=== PATIENT | female | born 1990 | race American Indian/Alaskan Native ===

== ENCOUNTER 2017-02-06 21:40 | Emergency (ER) | payer SELFPAY ==
[2017-02-06 22:24] VITALS: BP 128/80; PULSE 86
--- NOTE | 2017-02-06 22:56 | ED PDOC ---
Arrival/HPI - General Chief Complaint: Eye Problem Time Seen by Provider: 02/06/17 22:50 Historian: Patient - History of Present Illness Narrative History of Present Illness (Text): 02/06/17 22:51 Bailey Sepulveda is a 26 year old female who presents to the emergency department complaining of swelling to left eye since today morning. Reports she was unable to open her eyelids due to the swelling. States she applied Vaseline to the area, which reduced the swelling. Also reports of white discharge from the eye today evening. Currently states that discomfort is spreading to the other eye. Denies any vision changes. Patient is also complaining of swelling to lip for past 2 days. Denies any fever, chills, headache, dizziness, chest pain, difficulty breathing, nausea, vomiting, urinary symptoms, or any other complaints at this time. Time/Duration: Other (today morning ) Symptom Onset: Gradual Symptom Course: Worsening Severity Level: Mild Activities at Onset: Light Past Medical History - Provider Review Nursing Documentation Reviewed: Yes - Pulmonary Hx Asthma: Yes - Psychiatric Hx Substance Use: (MJ) Family/Social History - Physician Review Nursing Documentation Reviewed: Yes Family/Social History: No Known Family HX Smoking Status: no Hx Alcohol Use: No Hx Substance Use: (MJ) Allergies/Home Meds Allergies/Adverse Reactions: Allergies ibuprofen [From Motrin] Adverse Reaction (Verified 02/06/17 22:44) SWELLING iodine Adverse Reaction (Verified 02/06/17 22:44) ANGIOEDEMA shellfish derived Adverse Reaction (Verified 02/06/17 22:44) ANGIOEDEMA Review of Systems - Physician Review All systems were reviewed & negative as marked: Yes - Review of Systems Constitutional: Normal Eyes: Other (swelling to left eye ). absent: Vision Changes, Photophobia ENT: Other (swelling to lip ) Respiratory: Normal. absent: SOB, Cough, Sputum Cardiovascular: Normal. absent: Chest Pain, Palpitations Gastrointestinal: Normal Skin: Normal, Ulcer Neurological: absent: Headache, Dizziness Psychiatric: Normal Physical Exam Vital Signs Reviewed: Yes Vital Signs Temp Pulse Resp BP Pulse Ox 02/06/17 23:44 86 16 98 02/06/17 23:42 98.5 F 86 16 98 02/06/17 22:18 99.3 F 86 18 128/80 97 Temperature: Afebrile Blood Pressure: Normal Pulse: Regular Respiratory Rate: Normal Appearance: Positive for: Well-Appearing, Non-Toxic, Comfortable Pain Distress: None Mental Status: Positive for: Alert and Oriented X 3 - Systems Exam Head: Present: Atraumatic, Normocephalic Pupils: Present: PERRL Conjunctiva: Present: Injected Mouth: Present: Other (blister on bottom lip ) Respiratory/Chest: Present: Clear to Auscultation, Good Air Exchange. No: Respiratory Distress, Accessory Muscle Use Cardiovascular: Present: Regular Rate and Rhythm, Normal S1, S2. No: Murmurs Upper Extremity: Present: Normal Inspection. No: Cyanosis, Edema Lower Extremity: Present: Normal Inspection. No: Edema Neurological: Present: GCS=15, CN II-XII Intact, Speech Normal, Motor Func Grossly Intact, Normal Sensory Function Skin: Present: Warm, Dry, Normal Color. No: Rashes Psychiatric: Present: Alert, Oriented x 3, Normal Insight, Normal Concentration Medical Decision Making ED Course and Treatment: 02/06/17 22:57 Impression: A 26 year old female who presents to the emergency department complaining of swelling to left eye since today morning. Also reports of blister to bottom lip for past 2 days. Plan: -- Tobrex Ophth soln -- Reassess and disposition Progress Notes: 02/06/17 23:12 Patient is stable for discharge. Will discharge patient home on Xerese cream and Polytrim ophth solution. Advised to present to emergency department for worsening symptoms and follow up with PMD within few days. 02/06/17 23:18 - Medication Orders Current Medication Orders: Discontinued Medications Tobramycin Sulfate (Tobrex 0.3% Ophth Soln) 2 drop OU STAT STA Stop: 02/06/17 23:17 Last Admin: 02/06/17 23:41 Dose: 2 drop - Scribe Statement The provider has reviewed the documentation as recorded by the Radha Healy Provider Attestation: All medical record entries made by the Radha were at my direction and personally dictated by me. I have reviewed the chart and agree that the record accurately reflects my personal performance of the history, physical exam, medical decision making, and the department course for this patient. I have also personally directed, reviewed, and agree with the discharge instructions and disposition. Disposition/Present on Arrival - Present on Arrival Any Indicators Present on Arrival: No History of DVT/PE: No History of Uncontrolled Diabetes: No Urinary Catheter: No History of Decub. Ulcer: No History Surgical Site Infection Following: None - Disposition Have Diagnosis and Disposition been Completed?: Yes Diagnosis: Acute conjunctivitis of both eyes Disposition: HOME/ ROUTINE Disposition Time: 22:45 Patient Plan: Discharge Condition: GOOD Discharge Instructions (ExitCare): Conjunctivitis (ED) Additional Instructions: Thank you for letting us take care of you today. Your provider was Dr. Hernandez. You were treated for conjunctivitis. The emergency medical care you received today was directed at your acute symptoms. If you were prescribed any medication, please fill it and take as directed. It may take several days for your symptoms to resolve. Return to the Emergency Department if your symptoms worsen, do not improve, or if you have any other problems. Please contact your doctor or call one of the physicians/clinics you have been referred to that are listed on the Patient Visit Information form that is included in your discharge packet. Bring any paperwork you were given at discharge with you along with any medications you are taking to your follow up visit. Our treatment cannot replace ongoing medical care by a primary care provider (PCP) outside of the emergency department. Thank you for allowing the [facility] [employer] [facility] team to be part of your care today. Follow up with your doctor in 2-3 days for re-evaluation. Prescriptions: Acyclovir/Hydrocortisone [Xerese 5%-1% Cream] 1 cre TP QID #1 cre Polymyxin/Trimethoprim Sulfate [Polytrim Ophth Soln] 1 drop OU Q6 #1 bottle [facility] - Follow up with primary Forms: WORK NOTE
[2017-02-06] MEDS ORDERED: Tobramycin 0.3% OPHT SOLN OU STA (23:16)
[2017-02-06 23:42] VITALS: RESP 16; TEMP 98.5; O2SAT 98
== END 2017-02-06 23:45 | disposition home or self-care (01) ==
LOC: ED 21:40
DX: H10.9 Unspecified conjunctivitis (principal)

== ENCOUNTER 2017-06-06 19:34 | Emergency (ER) | payer SELFPAY ==
[2017-06-06 19:39] VITALS: BMI 42.0
[2017-06-06 19:45] VITALS: BP 116/76; PULSE 97; RESP 16; TEMP 98.6; O2SAT 98
[2017-06-06] MEDS ORDERED: Atrop/Hyosc/Scopal/PB Elixir (120 ml) PO STA (20:13)
[2017-06-06] MEDS ORDERED: Sodium Chloride 0.9% 1,000 ML IV STA (20:13)
[2017-06-06] MEDS ORDERED: Alum-Mag Hydrox-Simethicone Susp (30 mL) PO STA (20:13)
[2017-06-06 21:12] LABS: URINE BILIRUBIN NEGATIVE (NEGATIVE); URINE BLOOD NEGATIVE (NEGATIVE); URINE GLUCOSE (UA) NEGATIVE (NEGATIVE); URINE KETONE NEGATIVE (NEGATIVE); URINE LEUKOCYTE ESTERASE NEGATIVE Leu/uL (NEGATIVE); URINE PROTEIN NEGATIVE mg/dL (<30 mg/dL); URINE UROBILINOGEN 0.2 E.U./dL (<1 E.U./dL)
[2017-06-06 21:15] LABS: URINE APPEARANCE CLEAR (CLEAR); URINE COLOR YELLOW (YELLOW)
[2017-06-06 21:39] LABS: BASO # 0.02 K/mm3 (0.0-2.0); BASO % 0.2 % (0.0-3.0); EOS # 0.2 (0.0-0.7); EOS % 1.5 % (1.5-5.0); GRAN # 7.21 (1.4-6.5); GRAN % 64.2 % (50.0-68.0); HEMATOCRIT 39.9 % (36.0-48.0); LYMPH # 3.1 (1.2-3.4); LYMPH % 27.6 % (22.0-35.0); MEAN CORPUSCULAR HEMOGLOBIN 26.1 pg (25.0-35.0); MEAN CORPUSCULAR HGB CONC 31.1 g/dl (31.0-37.0); MEAN PLATELET VOLUME 11.3 fl (7.0-11.0); MONO # 0.7 (0.1-0.6); MONO % 6.5 % (1.0-6.0); RED CELL DISTRIBUTION WIDTH 12.4 % (11.5-14.5); WHITE BLOOD COUNT 11.2 10^3/ul (4.5-11.0)
[2017-06-06 21:43] LABS: ALB/GLOB RATIO 1.2 (1.1-1.8); ALKALINE PHOSPHATASE 88 U/L (38-126); ALT/SGPT 35 U/L (7-56); AST/SGOT 26 U/L (14-36); BILIRUBIN,TOTAL 0.7 mg/dL (0.2-1.3); BLOOD UREA NITROGEN 9 mg/dL (7-21); CALCIUM 9.2 mg/dL (8.4-10.5); CARBON DIOXIDE 27 mmol/L (21-33); GFR AFRICAN-AMERICAN > 60; GLUCOSE,RANDOM 85 mg/dL (70-110); LIPASE 48 U/L (23-300); SODIUM 139 mmol/L (132-148); TOTAL PROTEIN 7.4 g/dL (5.8-8.3)
--- NOTE | 2017-06-06 21:47 | ED PDOC ---
Arrival/HPI - General Chief Complaint: Abdominal Pain Time Seen by Provider: 06/06/17 19:56 Historian: Patient - History of Present Illness Narrative History of Present Illness (Text): 06/06/17 20:08 A 26 year old female, whose past medical history includes asthma, presents to the emergency department complaining of epigastric pain for several months. Patient notes experiencing mild nausea when eating, but does not pertain to certain types of foods give her more pain. Patient denies of any fever, cough, or any other complaints. No PMD Past Medical History - Provider Review Nursing Documentation Reviewed: Yes - Travel History Have you recently traveled outside [place] w/in the past 3 mons?: No - Infectious Disease Hx of Infectious Diseases: None - Pulmonary Hx Asthma: Yes - Psychiatric Hx Substance Use: Yes (MJ) - Surgical History Other/Comment: L knee acl/ hamstring/knee cap. abd. surgery as a child - Anesthesia Hx Anesthesia Reactions: No Hx Malignant Hyperthermia: No Family/Social History - Physician Review Nursing Documentation Reviewed: Yes Family/Social History: No Known Family HX Smoking Status: Current Some Days Smoker Hx Alcohol Use: No Hx Substance Use: Yes (MJ) Substance used: weed Allergies/Home Meds Allergies/Adverse Reactions: Allergies ibuprofen [From Motrin] Adverse Reaction (Verified 02/06/17 22:44) SWELLING iodine Adverse Reaction (Verified 02/06/17 22:44) ANGIOEDEMA shellfish derived Adverse Reaction (Verified 02/06/17 22:44) ANGIOEDEMA Review of Systems - Physician Review All systems were reviewed & negative as marked: Yes - Review of Systems Constitutional: absent: Fevers Respiratory: absent: Cough Gastrointestinal: Abdominal Pain (epigastric pain), Nausea (mild nausea), Food Intolerance. absent: Vomiting Physical Exam Vital Signs Reviewed: Yes Vital Signs Temp Pulse Resp BP Pulse Ox 06/06/17 19:34 98.6 F 97 H 16 116/76 98 Temperature: Afebrile Blood Pressure: Normal Pulse: Regular Respiratory Rate: Normal Appearance: Positive for: Well-Appearing Pain Distress: None Mental Status: Positive for: Alert and Oriented X 3 - Systems Exam Head: Present: Atraumatic, Normocephalic Pupils: Present: PERRL Extroacular Muscles: Present: EOMI Conjunctiva: Present: Normal Mouth: Present: Moist Mucous Membranes Neck: Present: Normal Range of Motion Respiratory/Chest: Present: Clear to Auscultation, Good Air Exchange. No: Respiratory Distress, Accessory Muscle Use Cardiovascular: Present: Regular Rate and Rhythm, Normal S1, S2. No: Murmurs Abdomen: Present: Tenderness (minimal epigatric tenderness) Back: Present: Normal Inspection Upper Extremity: Present: Normal Inspection. No: Cyanosis, Edema Lower Extremity: Present: Normal Inspection. No: Edema Neurological: Present: GCS=15, CN II-XII Intact, Speech Normal Skin: Present: Warm, Dry, Normal Color. No: Rashes Psychiatric: Present: Alert, Oriented x 3, Normal Insight, Normal Concentration Medical Decision Making ED Course and Treatment: 06/06/17 20:13 Impression: 26 year old female experiencing epigastric pain. Physical exam shows minimal epigastric tenderness. Plan: -- Labs -- Urinalysis -- Maalox -- Elixir -- Pepcid -- Lidocaine -- IV Fluids -- Reassess and disposition Prior Visits: Notes and results from previous visits were reviewed. Patient was last seen in the emergency department on 02/06/2017 for swelling to left eye. Patient was discharged home. Progress Notes: - Lab Interpretations Lab Results: 06/06/17 20:30 06/06/17 20:30 Lab Results 06/06/17 20:30: Sodium 139, Potassium 3.8, Chloride 102, Carbon Dioxide 27, Anion Gap 14, BUN 9, Creatinine 0.6, Est GFR ( Amer) > 60, Est GFR (Non- Af Amer) > 60, Random Glucose 85, Calcium 9.2, Total Bilirubin 0.7, AST 26, ALT 35, Alkaline Phosphatase 88, Total Protein 7.4, Albumin 4.1, Globulin 3.3, Albumin/Globulin Ratio 1.2, Lipase 48 06/06/17 20:30: WBC 11.2 H, RBC 4.75, Hgb 12.4, Hct 39.9, MCV 84.0, MCH 26.1, MCHC 31.1, RDW 12.4, Plt Count 249, MPV 11.3 H, Gran % 64.2, Lymph % (Auto) 27.6 , [place] % (Auto) 6.5 H, Eos % (Auto) 1.5, Baso % (Auto) 0.2, Gran # 7.21 H, Lymph # 3.1, [place] # 0.7 H, Eos # 0.2, Baso # 0.02 06/06/17 18:55: Urine Color Yellow, Urine Appearance Clear, Urine pH 6.0, Ur Specific [place] >= 1.030, Urine Protein Negative, Urine Glucose (UA) Negative, Urine Ketones Negative, Urine Blood Negative, Urine Nitrate Negative, Urine Bilirubin Negative, Urine Urobilinogen 0.2, Ur Leukocyte Esterase Negative, Urine HCG, Qual Negative I have reviewed the lab results: Yes - Medication Orders Current Medication Orders: Discontinued Medications Al Hydrox/Mg Hydrox/Simethicone (Maalox Plus 30 Ml) 30 ml PO STAT STA Stop: 06/06/17 20:14 Last Admin: 06/06/17 20:55 Dose: 30 ml Belladonna/Phenobarbital ( Elixir) 10 ml PO STAT STA Stop: 06/06/17 20:14 Last Admin: 06/06/17 20:55 Dose: 10 ml Famotidine (Pepcid) 20 mg IVP STAT STA Stop: 06/06/17 20:14 Last Admin: 06/06/17 20:54 Dose: 20 mg Sodium Chloride (Sodium Chloride 0.9%) 1,000 mls @ 1,000 mls/hr IV .Q1H STA Stop: 06/06/17 21:12 Last Admin: 06/06/17 20:56 Dose: 1,000 mls/hr Lidocaine HCl (Lidocaine 2% Viscous) 10 ml PO STAT STA Stop: 06/06/17 20:14 Last Admin: 06/06/17 20:54 Dose: 10 ml - Scribe Statement The provider has reviewed the documentation as recorded by the Radha Douglas Provider Scribe Attestation: All medical record entries made by the Radha were at my direction and personally dictated by me. I have reviewed the chart and agree that the record accurately reflects my personal performance of the history, physical exam, medical decision making, and the department course for this patient. I have also personally directed, reviewed, and agree with the discharge instructions and disposition. Disposition/Present on Arrival - Present on Arrival Any Indicators Present on Arrival: No History of DVT/PE: No History of Uncontrolled Diabetes: No Urinary Catheter: No History of Decub. Ulcer: No History Surgical Site Infection Following: None - Disposition Have Diagnosis and Disposition been Completed?: Yes Diagnosis: Gastritis Disposition: HOME/ ROUTINE Disposition Time: 22:30 Patient Problems: Current Active Problems Problem Status Onset Gastritis Acute Condition: IMPROVED Discharge Instructions (ExitCare): Gastritis (ED) Additional Instructions: Thank you for letting us take care of you today. Your provider was Dr. Hernandez. You were treated for gastritis. The emergency medical care you received today was directed at your acute symptoms. If you were prescribed any medication, please fill it and take as directed. It may take several days for your symptoms to resolve. Return to the Emergency Department if your symptoms worsen, do not improve, or if you have any other problems. Please contact your doctor or call one of the physicians/clinics you have been referred to that are listed on the Patient Visit Information form that is included in your discharge packet. Bring any paperwork you were given at discharge with you along with any medications you are taking to your follow up visit. Our treatment cannot replace ongoing medical care by a primary care provider (PCP) outside of the emergency department. Thank you for allowing the [facility] team to be part of your care today. Follow up with your doctor in 2-3 days for re-evaluation and further management. Prescriptions: Ranitidine HCl [Zantac] 150 mg PO BID #20 tablet Forms: [facility] (Bolivian), WORK NOTE
[2017-06-06 22:01] LABS: CHLORIDE 102 mmol/L (95-110); POTASSIUM 3.8 mmol/L (3.6-5.0)
== END 2017-06-06 23:03 | disposition home or self-care (01) ==
LOC: ED 19:34
DX: K29.70 Gastritis, unspecified, without bleeding (principal)
CPT/HCPCS: 80053; 81003; 83690; 84703; 85025; 96374; 99284; J7040

== ENCOUNTER 2017-07-03 22:03 | Emergency (ER) | payer SELFPAY ==
[2017-07-03 22:04] VITALS: BMI 42.0
[2017-07-03] MEDS ORDERED: Alum-Mag Hydrox-Simethicone Susp (30 mL) PO STA (22:55)
--- NOTE | 2017-07-03 23:05 | ED PDOC ---
Arrival/HPI - General Chief Complaint: Dental Pain Time Seen by Provider: 07/03/17 22:36 Historian: Patient - History of Present Illness Narrative History of Present Illness (Text): 07/03/17 22:36 Bailey Palma is a 26 year old female who presents to the emergency department complaining of epigastric pain for about 1 month and sharp right- sided tooth pain for 2 days. Patient states that she has been to the emergency department recently for the same epigastric symptoms and was prescribed Zantac with some relief. Patient also complains of sharp right sided tooth pain which began two days and notes to have chipped about one month ago. She states that pain worsens with cold fluids and exposure to wind. Patient denies any fever, chills, chest pain, shortness of breath, nausea, vomiting, diarrhea, urinary symptoms, back pain, neck pain, headache, dizziness, trauma/injury, suicidal/ homicidal ideation or any other complaints. Time/Duration: < week (right-sided tooth pain), > month (epigastric pain) Symptom Onset: Gradual Symptom Course: Unchanged Severity Level: Moderate Activities at Onset: Light Context: Home Past Medical History - Infectious Disease Hx of Infectious Diseases: None - Pulmonary Hx Asthma: Yes - Psychiatric Hx Substance Use: Yes (MJ) - Surgical History Other/Comment: L knee acl/ hamstring/knee cap. abd. surgery as a child - Anesthesia Hx Anesthesia Reactions: No Hx Malignant Hyperthermia: No Family/Social History Family/Social History: No Known Family HX Smoking Status: Current Some Days Smoker Hx Alcohol Use: No Hx Substance Use: Yes (MJ) Substance used: weed Allergies/Home Meds Allergies/Adverse Reactions: Allergies ibuprofen [From Motrin] Adverse Reaction (Verified 02/06/17 22:44) SWELLING iodine Adverse Reaction (Verified 02/06/17 22:44) ANGIOEDEMA shellfish derived Adverse Reaction (Verified 02/06/17 22:44) ANGIOEDEMA Review of Systems - Physician Review All systems were reviewed & negative as marked: Yes - Review of Systems Constitutional: absent: Fevers, Night Sweats Eyes: absent: Vision Changes ENT: Other (Right-sided tooth pain). absent: Hearing Changes Cardiovascular: absent: Chest Pain Gastrointestinal: Abdominal Pain (epigastric pain) Genitourinary Female: absent: Dysuria, Frequency Musculoskeletal: absent: Arthralgias Skin: absent: Rash, Pruritis Neurological: absent: Headache, Dizziness Endocrine: absent: Diaphoresis Hemo/Lymphatic: absent: Adenopathy Psychiatric: absent: Anxiety Physical Exam Vital Signs Reviewed: Yes Vital Signs Temp Pulse Resp BP Pulse Ox 07/03/17 22:17 98.2 F 76 18 126/84 99 Appearance: Positive for: Well-Appearing, Non-Toxic, Comfortable Pain Distress: None Mental Status: Positive for: Alert and Oriented X 3 - Systems Exam Head: Present: Atraumatic, Normocephalic. No: Swelling Pupils: Present: PERRL Mouth: Present: Moist Mucous Membranes, Other (non gingival erythema, no abscess , no sublingual or submental induration). No: Trismus Pharnyx: No: Peritonsilar Swelling, Uvular Deviation, Muffled/Hoarse Voice, Strider, Soft Palate/Uvular Edema Neck: Present: Normal Range of Motion Respiratory/Chest: Present: Clear to Auscultation. No: Respiratory Distress, Accessory Muscle Use Cardiovascular: Present: Regular Rate and Rhythm Abdomen: Present: Tenderness (Epigastric tenderness; negative mack's sign ). No: Distention, Peritoneal Signs, Rebound, Guarding Neurological: Present: GCS=15, Motor Func Grossly Intact, Normal Sensory Function Skin: Present: Warm, Dry Psychiatric: Present: Alert, Oriented x 3 Medical Decision Making ED Course and Treatment: for dental pain rx abx and rec close dental f/u chronic epigastric pain- susp gastritis- disc w pt importance of diet. disc plan for f/u and rtr. - Lab Interpretations Lab Results: 07/03/17 23:30 07/04/17 00:00 Lab Results 07/04/17 00:00: Sodium 141, Potassium 4.0, Chloride 104, Carbon Dioxide 28, Anion Gap 13, BUN 10, Creatinine 0.6 L, Est GFR ( Amer) > 60, Est GFR ( Non-Af Amer) > 60, Random Glucose 95, Calcium 9.5, Total Bilirubin 0.6, AST 26, ALT 33, Alkaline Phosphatase 88, Total Protein 7.2, Albumin 4.2, Globulin 3.0, Albumin/Globulin Ratio 1.4, Lipase 50 07/03/17 23:30: Urine Color Yellow, Urine Appearance Clear, Urine pH 6.0, Ur Specific [place] 1.025, Urine Protein Negative, Urine Glucose (UA) Negative, Urine Ketones Trace H, Urine Blood Negative, Urine Nitrate Negative, Urine Bilirubin Negative, Urine Urobilinogen 0.2, Ur Leukocyte Esterase Negative, Urine HCG, Qual Negative 07/03/17 23:30: WBC 11.8 H, RBC 4.68, Hgb 12.3, Hct 39.3, MCV 84.0, MCH 26.3, MCHC 31.3, RDW 12.7, Plt Count 282, MPV 12.1 H, Gran % 60.3, Lymph % (Auto) 32.3 , [place] % (Auto) 5.8, Eos % (Auto) 1.4 L, Baso % (Auto) 0.2, Gran # 7.10 H, Lymph # 3.8 H, [place] # 0.7 H, Eos # 0.2, Baso # 0.02 - RAD Interpretation Radiology Orders: 07/03/17 22:55 GALLBLADDER & COMMON DUCT [US] Stat - Medication Orders Current Medication Orders: Discontinued Medications Al Hydrox/Mg Hydrox/Simethicone (Maalox Plus 30 Ml) 30 ml PO STAT STA Stop: 07/03/17 22:56 Last Admin: 07/03/17 23:31 Dose: 30 ml Lidocaine HCl (Lidocaine 2% Viscous) 15 ml PO STAT STA Stop: 07/03/17 22:56 Last Admin: 07/03/17 23:31 Dose: 15 ml - Scribe Statement The provider has reviewed the documentation as recorded by the Radha Vogel Provider Scribe Attestation: All medical record entries made by the Riazibwilber were at my direction and personally dictated by me. I have reviewed the chart and agree that the record accurately reflects my personal performance of the history, physical exam, medical decision making, and the department course for this patient. I have also personally directed, reviewed, and agree with the discharge instructions and disposition. Disposition/Present on Arrival - Present on Arrival Any Indicators Present on Arrival: No History of DVT/PE: No History of Uncontrolled Diabetes: No Urinary Catheter: No History of Decub. Ulcer: No History Surgical Site Infection Following: None - Disposition Have Diagnosis and Disposition been Completed?: Yes Diagnosis: Pain, dental, Epigastric pain Disposition: HOME/ ROUTINE Disposition Time: 01:30 Condition: GOOD Discharge Instructions (ExitCare): Diet for Ulcers and Gastritis (ED) Additional Instructions: Please follow up with your primary doctor and also with a dentist. Return to the ER for any worsening symptoms or for any other concerns. Prescriptions: Penicillin VK [Penicillin VK Tab] 500 mg PO Q6H #80 tab Referrals: [facility] [place] [Outside] - Follow up with primary Michele Reaves MD [Staff Provider] - Follow up with primary Forms: [facility] (Qatari), WORK NOTE
[2017-07-03 23:53] LABS: BASO # 0.02 K/mm3 (0.0-2.0); BASO % 0.2 % (0.0-3.0); EOS # 0.2 (0.0-0.7); EOS % 1.4 % (1.5-5.0); GRAN # 7.1 (1.4-6.5); GRAN % 60.3 % (50.0-68.0); HEMATOCRIT 39.3 % (36.0-48.0); LYMPH # 3.8 (1.2-3.4); LYMPH % 32.3 % (22.0-35.0); MEAN CORPUSCULAR HEMOGLOBIN 26.3 pg (25.0-35.0); MEAN CORPUSCULAR HGB CONC 31.3 g/dl (31.0-37.0); MEAN PLATELET VOLUME 12.1 fl (7.0-11.0); MONO # 0.7 (0.1-0.6); MONO % 5.8 % (1.0-6.0); RED CELL DISTRIBUTION WIDTH 12.7 % (11.5-14.5); WHITE BLOOD COUNT 11.8 10^3/ul (4.5-11.0)
[2017-07-03 23:55] LABS: URINE BILIRUBIN NEGATIVE (NEGATIVE); URINE BLOOD NEGATIVE (NEGATIVE); URINE GLUCOSE (UA) NEGATIVE (NEGATIVE); URINE KETONE TRACE mg/dL (NEGATIVE); URINE LEUKOCYTE ESTERASE NEGATIVE Leu/uL (NEGATIVE); URINE PROTEIN NEGATIVE mg/dL (<30 mg/dL); URINE UROBILINOGEN 0.2 E.U./dL (<1 E.U./dL)
[2017-07-04 00:11] LABS: URINE APPEARANCE CLEAR (CLEAR); URINE COLOR YELLOW (YELLOW)
[2017-07-04 00:17] LABS: ALB/GLOB RATIO 1.4 (1.1-1.8); ALKALINE PHOSPHATASE 88 U/L (38-126); ALT/SGPT 33 U/L (7-56); AST/SGOT 26 U/L (14-36); BILIRUBIN,TOTAL 0.6 mg/dL (0.2-1.3); BLOOD UREA NITROGEN 10 mg/dL (7-21); CALCIUM 9.5 mg/dL (8.4-10.5); CARBON DIOXIDE 28 mmol/L (21-33); CHLORIDE 104 mmol/L (95-110); GFR AFRICAN-AMERICAN > 60; GLUCOSE,RANDOM 95 mg/dL (70-110); LIPASE 50 U/L (23-300); SODIUM 141 mmol/L (132-148); TOTAL PROTEIN 7.2 g/dL (5.8-8.3)
--- NOTE | 2017-07-04 01:23 | US ---
EXAM: US Abdomen Limited, Right Upper Quadrant CLINICAL HISTORY: 26 years old, female; Pain; Abdominal pain; Generalized; Additional info: Upper abd pain TECHNIQUE: Real-time ultrasound of the right upper quadrant with image documentation. COMPARISON: No relevant prior studies available. FINDINGS: Liver: Enlarged, 19.9 cm. Fatty infiltration. No mass. No intrahepatic ductal dilatation. Gallbladder: Contracted. No gallstones. No wall thickening. No pericholecystic fluid. No sonographic San's sign. Common bile duct: No dilatation. No stones. Pancreas: Unremarkable as visualized. Right kidney: Normal echogenicity. No hydronephrosis. IMPRESSION: 1.No acute findings. 2.Non-acute findings are described above.
[2017-07-04 02:02] VITALS: BP 126/84; PULSE 76; RESP 18; TEMP 98.2; O2SAT 99
== END 2017-07-04 01:30 | disposition home or self-care (01) ==
LOC: ED 22:03
DX: R10.13 Epigastric pain (principal); K08.89 Other specified disorders of teeth and supporting structures

== ENCOUNTER 2017-12-16 21:36 | Emergency (ER) | payer MEDICAID ==
[2017-12-16 21:36] VITALS: BMI 42.0
[2017-12-16 21:59] VITALS: BP 107/74; PULSE 98; RESP 18; TEMP 99.3; O2SAT 99
--- NOTE | 2017-12-16 21:59 | ED PDOC ---
Arrival/HPI - General Chief Complaint: Flu-like Symptoms Time Seen by Provider: 12/16/17 21:52 Historian: Patient - History of Present Illness Narrative History of Present Illness (Text): 12/16/17 21:59 Bailey Sepulveda is a 27 year old female who presents to the emergency department complaining of sore throat. Patient states she has been experiencing sore throat, worsened with swallowing, for the past 2-3 days with associated headache and body aches. Patient also reports a fever this morning. Patient states she took [id number] Theraflu today with minimal relief. Patient denies any chest pain, shortness of breath, abdominal pain, nausea, vomiting, diarrhea, urinary symptoms, back pain, neck pain, headache, dizziness, or any other complaints. Symptom Onset: Gradual Symptom Course: Unchanged Activities at Onset: Light Context: Home Past Medical History - Provider Review Nursing Documentation Reviewed: Yes - Infectious Disease Hx of Infectious Diseases: None - Pulmonary Hx Asthma: Yes - Psychiatric Hx Substance Use: Yes (MJ) - Surgical History Other/Comment: L knee acl/ hamstring/knee cap. abd. surgery as a child - Anesthesia Hx Anesthesia Reactions: No Hx Malignant Hyperthermia: No Family/Social History - Physician Review Nursing Documentation Reviewed: Yes Family/Social History: Unknown Family HX Smoking Status: Current Some Days Smoker Hx Alcohol Use: No Hx Substance Use: Yes (MJ) Substance used: weed Allergies/Home Meds Allergies/Adverse Reactions: Allergies ibuprofen [From Motrin] Adverse Reaction (Verified 02/06/17 22:44) SWELLING iodine Adverse Reaction (Verified 02/06/17 22:44) ANGIOEDEMA shellfish derived Adverse Reaction (Verified 02/06/17 22:44) ANGIOEDEMA Review of Systems - Physician Review All systems were reviewed & negative as marked: Yes - Review of Systems Constitutional: Fevers Eyes: Normal ENT: Sore Throat Respiratory: Normal. absent: SOB Cardiovascular: Normal Gastrointestinal: Normal Genitourinary Female: Normal Musculoskeletal: Other (+body aches). absent: Back Pain, Neck Pain Skin: Normal. absent: Rash Neurological: Headache. absent: Dizziness Endocrine: Normal Hemo/Lymphatic: Normal Psychiatric: Normal Physical Exam Vital Signs Reviewed: Yes Vital Signs Temp Pulse Resp BP Pulse Ox 12/16/17 21:45 99.3 F 98 H 18 107/74 99 Temperature: Afebrile Blood Pressure: Normal Pulse: Regular Respiratory Rate: Normal Appearance: Positive for: Well-Appearing, Non-Toxic, Comfortable Pain Distress: None Mental Status: Positive for: Alert and Oriented X 3 - Systems Exam Head: Present: Atraumatic, Normocephalic Pupils: Present: PERRL Extroacular Muscles: Present: EOMI Conjunctiva: Present: Normal Ears: Present: Normal, NORMAL TM, Normal Canal. No: Erythema, TM Bulging, Fluid , TM Perf Mouth: Present: Moist Mucous Membranes Pharnyx: Present: ERYTHEMA. No: EXUDATE, TONSILS ENLARGED, Peritonsilar Swelling, Uvular Deviation, Muffled/Hoarse Voice, Strider, Soft Palate/Uvular Edema Nose (External): Present: Atraumatic Nose (Internal): Present: Normal Inspection Neck: Present: Normal Range of Motion. No: Meningeal Signs, MIDLINE TENDERNESS , Paraspinal Tenderness Respiratory/Chest: Present: Clear to Auscultation, Good Air Exchange. No: Respiratory Distress, Accessory Muscle Use Cardiovascular: Present: Regular Rate and Rhythm, Normal S1, S2. No: Murmurs Abdomen: Present: Normal Bowel Sounds. No: Tenderness, Distention, Peritoneal Signs Back: Present: Normal Inspection Upper Extremity: Present: Normal Inspection. No: Cyanosis, Edema Lower Extremity: Present: Normal Inspection. No: Edema Neurological: Present: GCS=15, CN II-XII Intact, Speech Normal Skin: Present: Warm, Dry, Normal Color. No: Rashes Psychiatric: Present: Alert, Oriented x 3, Normal Insight, Normal Concentration Medical Decision Making ED Course and Treatment: 12/16/17 21:59 Impression: 27 year old female complaining of sore throat, headache, body aches for the past 2 days. Differential Diagnosis included but are not limited to: influenza vs. URI vs. pharyngitis vs. viral syndrome Plan: -- Rapid influenza -- Reassess and disposition Progress Notes: 12/17/17 00:10 On reevaluation the patient feels better and is in no acute distress. Discussed the results and plan with the patient, who expresses understanding. Patient is stable for discharge. Patient was instructed to follow up with physician/clinic in 1-2 days or return if symptoms persist/worsen or new concerning symptoms arise. - Lab Interpretations Lab Results: Lab Results 12/16/17 22:10: Influenza Typ A,B (EIA) Negative for flu a/b I have reviewed the lab results: Yes - Medication Orders Current Medication Orders: Discontinued Medications Clarithromycin (Biaxin Filmtab) 500 mg PO STAT STA PRN Reason: Protocol Stop: 12/16/17 23:32 Last Admin: 12/17/17 00:02 Dose: 500 mg Dexamethasone (Decadron Inj) 10 mg IM STAT STA Stop: 12/16/17 23:33 Last Admin: 12/17/17 00:00 Dose: 10 mg IM Administration Charges Document 12/17/17 00:00 [place] (Rec: 12/17/17 00:00 [place] [id number] Injection Site MAR Injection Site Right Arm Charges for Administration # of IM Administrations 1 Tobramycin Sulfate (Tobrex 0.3% Ophth Soln) 0 drop OU STAT STA Stop: 12/16/17 23:33 Last Admin: 12/17/17 00:00 Dose: 0.3 selin - Scribe Statement The provider has reviewed the documentation as recorded by the Radha Hahn Provider Scribe Attestation: All medical record entries made by the Scribe were at my direction and personally dictated by me. I have reviewed the chart and agree that the record accurately reflects my personal performance of the history, physical exam, medical decision making, and the department course for this patient. I have also personally directed, reviewed, and agree with the discharge instructions and disposition. Disposition/Present on Arrival - Present on Arrival Any Indicators Present on Arrival: No History of DVT/PE: No History of Uncontrolled Diabetes: No Urinary Catheter: No History of Decub. Ulcer: No History Surgical Site Infection Following: None - Disposition Have Diagnosis and Disposition been Completed?: Yes Diagnosis: Upper respiratory infection, Conjunctivitis Disposition: HOME/ ROUTINE Disposition Time: 00:10 Condition: GOOD Discharge Instructions (ExitCare): Viral Upper Respiratory Infection, Adult (DC ), Conjunctivitis (Pinkeye) (DC) Additional Instructions: eye drops 2 drops 4 tomes a day for 7 days Prescriptions: Clarithromycin [Biaxin Filmtab] 500 mg PO BID #20 tab Referrals: PCP,NO [Primary Care Provider] - Follow up with primary Forms: [employer] (Pashto), WORK NOTE
[2017-12-16] MEDS ORDERED: Tobramycin 0.3% OPHT SOLN OU STA (23:32)
== END 2017-12-17 00:12 | disposition home or self-care (01) ==
LOC: ED 21:36
DX: J06.9 Acute upper respiratory infection, unspecified (principal); H10.9 Unspecified conjunctivitis
CPT/HCPCS: 87804; 96372; 99283; J1100

== ENCOUNTER 2018-05-04 22:47 | Emergency (ER) | payer MEDICAID ==
[2018-05-04] MEDS ORDERED: EPINEPHrine 1 mg/ml (1:1000) Inj SC STA (22:51)
[2018-05-04 22:53] VITALS: BMI 34.2
[2018-05-04] MEDS ORDERED: DiphenhydrAMINE 50 mg/ml Inj IVP ONE (22:53)
[2018-05-04] MEDS ORDERED: EPINEPHrine 1 mg/ml (1:1000) Inj ONE (22:56)
[2018-05-04] MEDS ORDERED: DiphenhydrAMINE 50 mg/ml Inj ONE (22:59)
[2018-05-04] MEDS ORDERED: Sodium Chloride 0.9% 1,000 ML IV SCH (23:00)
--- NOTE | 2018-05-04 23:30 | ED PDOC ---
Arrival/HPI - General Chief Complaint: Allergic Reaction Time Seen by Provider: 05/04/18 22:50 Historian: Patient - History of Present Illness Narrative History of Present Illness (Text): 05/04/18 23:25 27 year old female, whose past medical history includes a seafood allergy, who presents to the Emergency Department for evaluation s/p allergic reaction. Patient notes she accidentally ate crab. Patient notes her lip began to swell, her face felt itchy, and her throat felt full. Patient denies any fever, shortness of breath, chest pain, headache, dizziness, nausea, vomiting, diarrhea , or any other complaints. Time/Duration: Prior to Arrival Symptom Onset: Sudden Symptom Course: Unchanged Activities at Onset: Light Context: Home Past Medical History - Provider Review Nursing Documentation Reviewed: Yes - Infectious Disease Hx of Infectious Diseases: None - Reproductive Menopause: No - Pulmonary Hx Asthma: Yes - Psychiatric Hx Substance Use: Yes (MJ) - Surgical History Other/Comment: L knee acl/ hamstring/knee cap. abd. surgery as a child - Anesthesia Hx Anesthesia Reactions: No Hx Malignant Hyperthermia: No Family/Social History - Physician Review Nursing Documentation Reviewed: Yes Family/Social History: Unknown Family HX Smoking Status: Current Some Days Smoker Hx Alcohol Use: No Hx Substance Use: Yes (MJ) Substance used: weed Allergies/Home Meds Allergies/Adverse Reactions: Allergies ibuprofen [From Motrin] Adverse Reaction (Verified 05/04/18 22:51) SWELLING iodine Adverse Reaction (Verified 05/04/18 22:51) ANGIOEDEMA shellfish derived Adverse Reaction (Verified 05/04/18 22:51) ANGIOEDEMA Review of Systems - Physician Review All systems were reviewed & negative as marked: Yes - Review of Systems Constitutional: Normal Eyes: Normal ENT: Other (lip swelling; throat fullness) Respiratory: Normal. absent: SOB, Cough Cardiovascular: Normal. absent: Chest Pain Gastrointestinal: Normal. absent: Abdominal Pain, Diarrhea, Nausea, Vomiting Genitourinary Female: Normal. absent: Dysuria, Frequency Musculoskeletal: Normal. absent: Back Pain, Neck Pain Skin: Other (face feels itchy). absent: Rash Neurological: Normal. absent: Headache, Dizziness Endocrine: Normal Hemo/Lymphatic: Normal Psychiatric: Normal Physical Exam Vital Signs Reviewed: Yes Vital Signs Temp Pulse Resp BP Pulse Ox 05/05/18 00:16 91 H 16 133/75 100 05/04/18 23:03 98 F 90 22 124/51 L 99 Temperature: Afebrile Blood Pressure: Hypotensive Pulse: Regular Respiratory Rate: Normal Appearance: Positive for: Well-Appearing, Non-Toxic, Comfortable Pain Distress: None Mental Status: Positive for: Alert and Oriented X 3 - Systems Exam Head: Present: Atraumatic, Normocephalic Pupils: Present: PERRL Extroacular Muscles: Present: EOMI Conjunctiva: Present: Normal Mouth: Present: Moist Mucous Membranes. No: Normal Lips (mild swelling to lower lip) Neck: Present: Normal Range of Motion Respiratory/Chest: Present: Clear to Auscultation, Good Air Exchange. No: Respiratory Distress, Accessory Muscle Use Cardiovascular: Present: Regular Rate and Rhythm, Normal S1, S2. No: Murmurs Abdomen: No: Tenderness, Distention, Peritoneal Signs Back: Present: Normal Inspection Upper Extremity: Present: Normal Inspection. No: Cyanosis, Edema Lower Extremity: Present: Normal Inspection. No: Edema Neurological: Present: GCS=15, CN II-XII Intact, Speech Normal Skin: Present: Warm, Dry, Normal Color. No: Rashes Psychiatric: Present: Alert, Oriented x 3, Normal Insight, Normal Concentration Medical Decision Making ED Course and Treatment: 05/04/18 23:34 Impression: 27 year old female presents to the emergency department s/p allergic reaction. Plan: -- Benadryl -- EPINEPHrine -- Pepcid -- Sodium CHloride -- SOLU-Medrol Progress Notes: 05/05/18 01:23 Patient with symptomatic relief following treatment/period of observation in the ED. - Medication Orders Current Medication Orders: Sodium Chloride (Sodium Chloride 0.9%) 1,000 mls @ 100 mls/hr IV .Q10H DEB Last Admin: 05/05/18 00:27 Dose: 100 mls/hr eMAR Start Stop Document 05/05/18 00:27 IT (Rec: 05/05/18 00:27 IT [id number]) Intravenous Solution Start Date 05/05/18 Start Time 00:27 Discontinued Medications Diphenhydramine HCl (Benadryl) 25 mg IVP ONCE ONE Stop: 05/04/18 22:54 Last Admin: 05/04/18 23:05 Dose: 25 mg IVP Administration Document 05/04/18 23:05 IT (Rec: 05/04/18 23:05 IT [facility] [place]-[id number]) Charges for Administration # of IVP Administrations 1 Epinephrine HCl (Epinephrine) 0.3 mg SC STAT STA Stop: 05/04/18 22:52 Last Admin: 05/04/18 22:56 Dose: 0.3 mg Subcutaneous Administrations Document 05/04/18 22:56 IT (Rec: 05/04/18 22:57 IT [facility] [place]-[id number]) Injection Site MAR Injection Site Left Abdomen Charges for Administration # of Subcutaneous Administrations 1 Famotidine (Pepcid) 20 mg IVP STAT STA Stop: 05/04/18 22:53 Last Admin: 05/04/18 23:34 Dose: 20 mg IVP Administration Document 05/04/18 23:34 IT (Rec: 05/04/18 23:34 IT [id number]) Charges for Administration # of IVP Administrations 1 Methylprednisolone (Solu-Medrol) 125 mg IVP ONCE ONE Stop: 05/04/18 22:53 Last Admin: 05/04/18 23:05 Dose: 125 mg IVP Administration Document 05/04/18 23:05 IT (Rec: 05/04/18 23:05 IT [facility] [place]-[id number]) Charges for Administration # of IVP Administrations 1 - Scribe Statement The provider has reviewed the documentation as recorded by the Scribwilber Asher All medical record entries made by the Scribe were at my direction and personally dictated by me. I have reviewed the chart and agree that the record accurately reflects my personal performance of the history, physical exam, medical decision making, and the department course for this patient. I have also personally directed, reviewed, and agree with the discharge instructions and disposition. Disposition/Present on Arrival - Present on Arrival Any Indicators Present on Arrival: No History of DVT/PE: No History of Uncontrolled Diabetes: No Urinary Catheter: No History of Decub. Ulcer: No History Surgical Site Infection Following: None - Disposition Have Diagnosis and Disposition been Completed?: Yes Diagnosis: Allergic reaction Disposition: HOME/ ROUTINE Disposition Time: 01:25 Patient Plan: Discharge Condition: GOOD Discharge Instructions (ExitCare): Food Allergy Additional Instructions: Avoid future exposure to fish/medication as prescribed/follow up with your doctor this week Prescriptions: DiphenhydrAMINE [Benadryl] 50 mg PO Q6 PRN #24 cap PRN Reason: Itching / Pruritus Epinephrine HCl [Epipen Auto-Injector] 0.3 mg IM PRN PRN #1 unit PRN Reason: Anaphylaxis predniSONE [Prednisone] 40 mg PO DAILY #10 tab Forms: [employer] (Filipino)
[2018-05-05 00:17] VITALS: RESP 16; O2SAT 100
[2018-05-05 01:50] VITALS: BP 125/72; PULSE 82; TEMP 98.2
== END 2018-05-05 01:50 | disposition home or self-care (01) ==
LOC: ED 22:47
DX: T78.49XA Other allergy, initial encounter (principal); X58.XXXA Exposure to other specified factors, initial encounter
CPT/HCPCS: 96372; 96374; 96375; 99284; J0171; J1200; J2930; J7030